=== PATIENT | male | born 1940 | race Caucasian/White ===

== ENCOUNTER 2016-11-15 11:58 | Day surgery (SDC) | payer MEDICARE, BC ==
[~2016-11-15 11:58] MED LIST: Buffered Lidocaine 1% SYR 3ML* 3 ML/SYR SYRINGE INTRADERM ONE
[2016-11-15] MEDS ORDERED: Buffered Lidocaine 1% SYR 3ML* 3 ML/SYR SYRINGE ONE (12:21)
[2016-11-15] MEDS ORDERED: Midazolam* 1 MG/ML 2 ML VIAL (2 MG) ONE (13:26)
[2016-11-15] MEDS ORDERED: Famotidine IV* 10 MG/ML 2 ML (20 mg) ONE (13:26)
[2016-11-15] MEDS ORDERED: Propofol* 10 MG/ML 20 ML BTL IV PUSH ONE (13:29)
[2016-11-15] MEDS ORDERED: Dexamethasone IV* 4 MG/ML 1 ML (4 MG) ONE (13:29)
[2016-11-15] MEDS ORDERED: Succinylcholine* 20 MG/ML 10 ML VIAL ONE (13:29)
[2016-11-15] MEDS ORDERED: Lidocaine 2% PF * 5 ML VIAL ONE (13:29)
[2016-11-15] MEDS ORDERED: fentaNYL* 50 MCG/ML 2 ML VIAL (100 MCG VIAL) ONE (13:56)
[2016-11-15] MEDS ORDERED: Acetaminophen TAB* 325 MG PO PRN (14:06)
[2016-11-15] MEDS ORDERED: Ondansetron INJ* 2 MG/ML VIAL IV PRN (14:06)
[2016-11-15] MEDS ORDERED: PROCHLORPERAZINE INJ 5 MG/ML 2 ML VIAL IV PRN (14:06)
[2016-11-15] MEDS ORDERED: Albuterol 2.5 MG/3 ML NEB.SOL* (0.083%) INH ONE (15:05)
[2016-11-15] MEDS ORDERED: Albuterol 2.5 MG/3 ML NEB.SOL* (0.083%) ONE (15:05)
[2016-11-15 15:23] VITALS: BP 112/65
--- NOTE | 2016-11-16 04:14 | PRO ---
BRONCHOSCOPY REPORT: DATE OF PROCEDURE: 11/15/16 - [facility] PROCEDURE PERFORMED BY: Naa Medel MD PROCEDURE PERFORMED: Bronchoscopy with endobronchial ultrasound-guided fine- needle aspiration of lung mass and mediastinal adenopathy. INDICATION FOR THE PROCEDURE: Lung mass, rule out malignancy. ANESTHESIOLOGIST: Dr. Muhammad. Refer to anesthesiologist note for further details. DESCRIPTION OF PROCEDURE: Informed consent was obtained from the patient prior to the procedure after all the risks and benefits of the procedure were thoroughly explained. A flexible Pentax bronchoscope was utilized for the airway inspection. Endotracheal tube was found to be 1 cm above the stephani and was pulled back about a centimeter. The bronchoscope was then advanced into the left bronchial tree, which was inspected. No endobronchial lesions were noted. All airways appeared to be patent. Bronchoscope was then advanced into the right mainstem bronchus. There was extrinsic compression and narrowing of right main stem bronchus and right upper lobe takeoff. No endobronchial lesions were noted. All the other airways on the right side appeared to be patent otherwise. Minimal secretions were noted and were suctioned out. The bronchoscope was then withdrawn and EBUS bronchoscope was inserted through ET tube. The L4 lymph nodes were scanned. Two L4 lymph node was minimally enlarged measuring about 5 to 6 mm. Two passes were performed from L4. Adequate lymphatic tissue was seen. Rapid on-site evaluation did not reveal malignant cells. R4 lymph node was accessed with 5 passes. The lymphatic tissue was seen on all the passes. Rapid on-site evaluation showed malignant cells. Rest of the specimen was placed in CytoLyt. Station seven lymph node was accessed through three passes. Malignant cells were also seen from station seven lymph node on rapid on-site evaluation. Specimen was placed in formalin and was sent to pathology for cell block. Bronchoscope was then withdrawn. A Pentax bronchoscope was once again inserted and airway was inspected for bleeding. Minimal bleeding was noted. The patient tolerated the procedure well. The patient was extubated and was seen in the Recovery in optimal condition. [id number]/CPS #: [id number] MTDD
== END 2016-11-15 15:36 | disposition home or self-care (01) ==
LOC: OR 11:58
PROVIDERS: ATTEND Internal Medicine
DX: C77.1 Secondary and unspecified malignant neoplasm of intrathoracic lymph nodes (principal); I48.91 Unspecified atrial fibrillation; Z79.01 Long term (current) use of anticoagulants; Z87.891 Personal history of nicotine dependence; J44.9 Chronic obstructive pulmonary disease, unspecified; I10 Essential (primary) hypertension
CPT/HCPCS: 88172; 88173; 88305; 88341; 88342; J0330; J1100; J2250; J2704; J3010

== ENCOUNTER 2017-01-08 14:58 | Inpatient (IN) | payer MEDICARE, BC ==
[2017-01-08] MEDS ORDERED: NS 0.9% 1000 ML* 1,000 ML IV ONE (15:21)
--- NOTE | 2017-01-08 15:42 | RAD ---
HISTORY: Weakness COMPARISONS: CT of the chest dated December 12, 2016 VIEWS:1: Single frontal portable view of the chest at 3:23 PM FINDINGS: LINES AND TUBES: None. CARDIOMEDIASTINAL SILHOUETTE: The cardiomediastinal silhouette is normal for portable technique. PLEURA: The costophrenic angles are sharp. No pleural abnormalities are noted. LUNG PARENCHYMA: Again noted is a right suprahilar mass. Accounting for differences in technique, this is stable from the previous CT examination ABDOMEN: The upper abdomen is clear. There is no subphrenic gas. BONES AND SOFT TISSUES: No bone or soft tissue abnormalities are noted. IMPRESSION: PERSISTENT SUPRAHILAR MASS OF THE RIGHT LATERAL
[2017-01-08 15:46] LABS: Hematocrit 33 % (42-52); Hemoglobin 10.7 g/dl (14.0-18.0); Mean Corpuscular HGB Conc 32 g/dl (31-36); Mean Corpuscular Hemoglobin 28 pg (27-31); Mean Corpuscular Volume 85 fL (80-94); Mean Platelet Volume 8 um3 (7.4-10.4); Red Blood Count 3.88 10^6/ul (4.0-5.4); Red Cell Distribution Width 16 % (10.5-15)
[2017-01-08 15:47] LABS: Comments Flag Yes
[2017-01-08 15:50] LABS: White Blood Count 1.5 10^3/ul (3.5-10.8)
[2017-01-08 16:01] LABS: Albumin 3.6 g/dL (3.2-5.2); BUN/Creatinine Ratio 33.3 (8-20); Calcium 9.6 mg/dL (8.6-10.3); EGFR African American 69.6 (>60); EGFR Non-African American 54.2 (>60); Globulin 2.9 g/dL (2-4); Potassium 3.3 mmol/L (3.5-5.0); Total Bilirubin 0.8 mg/dL (0.2-1.0); Total Protein 6.5 g/dL (6.4-8.9)
[2017-01-08] MEDS ORDERED: NS 0.9% IV ONE (16:01)
[2017-01-08] MEDS ORDERED: cefTRIAXone(*) 1 GM in NS 0.9% 50 ML* 50 ML IVPB ONE (16:02)
[2017-01-08 16:03] LABS: Troponin I 0.03 ng/mL (<0.04)
[2017-01-08] MEDS: Azithromycin IV(*) 500 MG in NS 0.9% 250 ML* 250 ML IVPB ONE ×2 (16:41→17:45)
[2017-01-08] MEDS ORDERED: oxyCODONE/Acetamin 5/325 MG* TAB PO PRN (18:49)
[2017-01-08] MEDS ORDERED: Magnesium Hydroxide LIQ* 30 ML UDC PO PRN (18:49)
[2017-01-08] MEDS ORDERED: Acetaminophen TAB* 325 MG PO PRN (18:49)
[2017-01-08] MEDS ORDERED: Ondansetron INJ* 2 MG/ML VIAL IV PRN (18:49)
[2017-01-08] MEDS ORDERED: Temazepam CAP* 15 MG PO PRN (18:49)
[2017-01-08] MEDS ORDERED: Phytonadione Oral Solution* 5 MG/25 ML UDC PO ONE (19:02)
--- NOTE | 2017-01-08 19:56 | ED ---
Fito Zaidi Adam, scribed for America Clancy MD on 01/08/17 at 1530 . Complex/Multi-Sys Presentation - HPI Summary HPI Summary: A 76 y/o male presents to the ED with progressively worsening nausea and vomiting since 2 days ago. He underwent radiation 3 days ago which caused him to feel very weak and he began having nausea and vomiting the next day. Pt also c/o SOB with exertion but he denies any CP. He sees Dr. Sterling for oncology and he is being treated with radiation as well as chemotherapy. - History Of Current Complaint Chief Complaint: EDGeneral Time Seen by Provider: 01/08/17 15:21 Hx Obtained From: Patient Onset/Duration: Gradual Onset, Lasting Days, Still Present Timing: Constant Severity Currently: Moderate Severity Initially: Moderate Aggravating Factor(s): Radiation therapy Alleviating Factor(s): Nothing Associated Signs And Symptoms: Positive: Weakness, SOB, Nausea, Vomiting. Negative: Chest Pain - Allergies/Home Medications Allergies/Adverse Reactions: Allergies Allergy/AdvReac Type Severity Reaction Status Date / Time Barium Allergy Severe Vomiting Verified 11/24/16 15:44 Codeine Allergy Severe VIOLENT Verified 11/24/16 15:44 VOMITING Penicillins Allergy Mild Rash Verified 11/24/16 15:44 Home Medications: Home Medications Fluticasone/Vilanterol MDI(NF) [Breo Ellipta MDI (NF)] 1 puff INH DAILY [History Confirmed 01/08/17] Ondansetron TAB* [Zofran 4 MG Tab*] 4 mg PO Q4HR PRN 01/08/17 [History Confirmed 01/08/17] Prochlorperazine TAB* [Compazine Tab*] 10 mg PO QID PRN 01/08/17 [History Confirmed 01/08/17] Tiotropium Mason Monohydrate [Spiriva Respimat] 2.5 mcg INH DAILY 01/08/17 [ History Confirmed 01/08/17] PMH/Surg Hx/FS Hx/Imm Hx Endocrine/Hematology History: Denies: Hx Diabetes Cardiovascular History: Reports: Hx Hypertension, Other Cardiovascular Problems/ Disorders - A-FIB CONTROL WITH WARFARIN Denies: Hx Pacemaker/ICD Respiratory History: Reports: Other Respiratory Problems/Disorders GI History: Reports: Other GI Disorders - HX OF DIVERTICULITS - NO PROBLEMS NOW History: Reports: Hx Kidney Stones - CURRENTLY, Other Problems/Disorders - ENLARGE PROSTATE Denies: Hx Renal Disease Musculoskeletal History: Reports: Hx Arthritis - BACK, RIGHT HIP, Other Musculoskeletal History - HX OF FRACTURE RIGHT HIP AND BACK YEARS AGO Denies: Hx Osteoporosis Sensory History: Reports: Hx Contacts or Glasses - GLASSES Denies: Hx Hearing Aid Opthamlomology History: Reports: Hx Contacts or Glasses - GLASSES Psychiatric History: Denies: Hx Panic Disorder - Cancer History Cancer Type, Location and Year: LUNG CANCER Hx Chemotherapy: Yes Hx Radiation Therapy: Yes - Surgical History Surgery Procedure, Year, and Place: APPENDECTOMY; CHOLECYSTECTOMY Hx Anesthesia Reactions: No Infectious Disease History: Denies: Traveled Outside the [place] in Last 30 Days - Family History Known Family History: Positive: Other - Negative: malignant hyperthermia, anesthesia reaction - Social History Occupation: Retired Lives: Alone Alcohol Use: None Alcohol Amount: RECOVERING ALCOHOLIC, NONE IN 36 YEARS Hx Substance Use: No Substance Use Type: Reports: None Hx Tobacco Use: Yes Smoking Status (MU): Former Smoker - Stopped 6 weeks ago (11/2016) Type: Cigarettes Amount Used/How Often: 1/2 PPD FOR ABOUT 40 YEARS Length of Time of Smoking/Using Tobacco: 40 YEARS Have You Smoked in the Last Year: Yes Review of Systems Negative: Chest Pain Positive: Shortness Of Breath Positive: Vomiting, Nausea Positive: Weakness All Other Systems Reviewed And Are Negative: Yes Physical Exam Triage Information Reviewed: Yes Vital Signs On Initial Exam: Initial Vitals Temp Pulse Resp BP Pulse Ox 97.7 F 117 20 110/59 100 01/08/17 15:09 01/08/17 15:09 01/08/17 15:09 01/08/17 15:09 01/08/17 15:09 Vital Signs Reviewed: Yes Appearance: Positive: No Pain Distress, Ill-Appearing Skin: Positive: Warm, Skin Color Reflects Adequate Perfusion, Dry Eyes: Positive: EOMI, GARRETT ENT: Positive: Pharynx normal, TMs normal, Other - Dry mucous membranes Neck: Positive: Supple, Nontender Respiratory/Lung Sounds: Positive: Clear to Auscultation, Breath Sounds Present. Negative: Rales, Rhonchi, Wheezes Cardiovascular: Positive: RRR. Negative: Murmur, Rub Abdomen Description: Positive: Nontender, Soft. Negative: Distended, Guarding Bowel Sounds: Positive: Present Musculoskeletal: Positive: Strength/ROM Intact. Negative: Edema Left, Edema Right Neurological: Positive: Sensory/Motor Intact, Alert, Oriented to Person Place, Time, CN Intact II-III Psychiatric: Positive: Affect/Mood Appropriate Diagnostics - Vital Signs Vital Signs Temp Pulse Resp BP Pulse Ox 01/08/17 15:09 97.7 F 117 20 110/59 100 - Laboratory Lab Results: Lab Results 01/08/17 01/08/17 01/08/17 Range/Units 15:35 15:35 15:35 WBC 1.5 L (3.5-10.8) 10^3/ul RBC 3.88 L (4.0-5.4) 10^6/ul Hgb 10.7 L (14.0-18.0) g/dl Hct 33 L (42-52) % MCV 85 (80-94) fL MCH 28 (27-31) pg MCHC 32 (31-36) g/dl RDW 16 H (10.5-15) % Plt Count 128 L (150-450) 10^3/ul MPV 8 (7.4-10.4) um3 Neut % (Auto) 82.5 (38-83) % Lymph % (Auto) 7.9 L (25-47) % [place] % (Auto) 8.1 (1-9) % Eos % (Auto) 0.3 (0-6) % Baso % (Auto) 1.2 (0-2) % Absolute Neuts (auto) 1.2 L (1.5-7.7) 10^3/ul Absolute Lymphs (auto) 0.1 L (1.0-4.8) 10^3/ul Absolute Monos (auto) 0.1 (0-0.8) 10^3/ul Absolute Eos (auto) 0 (0-0.6) 10^3/ul Absolute Basos (auto) 0 (0-0.2) 10^3/ul Absolute Nucleated RBC 0.01 10^3/ul Nucleated RBC % 0.4 INR (Anticoag Therapy) 8.79 H* (0.89-1.11) APTT 67.4 H (26.0-36.3) seconds Sodium 134 (133-145) mmol/L Potassium 3.3 L (3.5-5.0) mmol/L Chloride 99 L (101-111) mmol/L Carbon Dioxide 27 (22-32) mmol/L Anion Gap 8 (2-11) mmol/L BUN 43 H (6-24) mg/dL Creatinine 1.29 H (0.67-1.17) mg/dL Est GFR ( Amer) 69.6 (>60) Est GFR (Non-Af Amer) 54.2 (>60) BUN/Creatinine Ratio 33.3 H (8-20) Glucose 113 H (70-100) mg/dL Lactic Acid (0.5-2.0) mmol/L Calcium 9.6 (8.6-10.3) mg/dL Total Bilirubin 0.80 (0.2-1.0) mg/dL AST 17 (13-39) U/L ALT 16 (7-52) U/L Alkaline Phosphatase 86 (34-104) U/L Troponin I 0.03 (<0.04) ng/mL Total Protein 6.5 (6.4-8.9) g/dL Albumin 3.6 (3.2-5.2) g/dL Globulin 2.9 (2-4) g/dL Albumin/Globulin Ratio 1.2 (1-3) Influenza A (Rapid) (Negative) Influenza B (Rapid) (Negative) 01/08/17 01/08/17 Range/Units 15:35 16:34 WBC (3.5-10.8) 10^3/ul RBC (4.0-5.4) 10^6/ul Hgb (14.0-18.0) g/dl Hct (42-52) % MCV (80-94) fL MCH (27-31) pg MCHC (31-36) g/dl RDW (10.5-15) % Plt Count (150-450) 10^3/ul MPV (7.4-10.4) um3 Neut % (Auto) (38-83) % Lymph % (Auto) (25-47) % [place] % (Auto) (1-9) % Eos % (Auto) (0-6) % Baso % (Auto) (0-2) % Absolute Neuts (auto) (1.5-7.7) 10^3/ul Absolute Lymphs (auto) (1.0-4.8) 10^3/ul Absolute Monos (auto) (0-0.8) 10^3/ul Absolute Eos (auto) (0-0.6) 10^3/ul Absolute Basos (auto) (0-0.2) 10^3/ul Absolute Nucleated RBC 10^3/ul Nucleated RBC % INR (Anticoag Therapy) (0.89-1.11) APTT (26.0-36.3) seconds Sodium (133-145) mmol/L Potassium (3.5-5.0) mmol/L Chloride (101-111) mmol/L Carbon Dioxide (22-32) mmol/L Anion Gap (2-11) mmol/L BUN (6-24) mg/dL Creatinine (0.67-1.17) mg/dL Est GFR ( Amer) (>60) Est GFR (Non-Af Amer) (>60) BUN/Creatinine Ratio (8-20) Glucose (70-100) mg/dL Lactic Acid 2.1 H* (0.5-2.0) mmol/L Calcium (8.6-10.3) mg/dL Total Bilirubin (0.2-1.0) mg/dL AST (13-39) U/L ALT (7-52) U/L Alkaline Phosphatase (34-104) U/L Troponin I (<0.04) ng/mL Total Protein (6.4-8.9) g/dL Albumin (3.2-5.2) g/dL Globulin (2-4) g/dL Albumin/Globulin Ratio (1-3) Influenza A (Rapid) Negative (Negative) Influenza B (Rapid) Negative (Negative) Result Diagrams: 01/08/17 15:35 01/08/17 15:35 Lab Statement: Any lab studies that have been ordered have been reviewed, and results considered in the medical decision making process. - Radiology CXR Radiology Interpretation Completed By: Radiologist - IMPRESSION: PERSISTENT SUPRAHILAR MASS OF THE RIGHT LATERAL - Additional Comments Diagnostic Additional Comments: Lactic Acid - 2.1 INR - 8.79 Troponin I - 0.03 Influenza A (Rapid) - Negative Influenza B (Rapid) - Negative Complex Multi-Symp Course/Dx Course Of Treatment: 76 yo male with lung ca getting radiation and chemo here after vomiting at home. Pt appearing dehydrated with elevated lactate, hr , 30cc /kg of normal saline given and abx given to cover. [facility] accepted pt for admission - Diagnoses Provider Diagnoses: Dehydration Discharge - Discharge Plan Condition: Stable Disposition: ADMITTED TO [facility] The documentation as recorded by the Fito del rosario Adam accurately reflects the service I personally performed and the decisions made by me, America Clancy MD.
[2017-01-08] MEDS: Metoprolol Tartrate TAB* 50 mg PO SCH (20:59)
[2017-01-08] MEDS: NS 0.9% 1000 ML* 1,000 ML IV SCH (21:00)
--- NOTE | 2017-01-09 02:23 | HP ---
HISTORY AND PHYSICAL: DATE OF ADMISSION: 01/08/17 IDENTIFICATION: A 76-year-old male receiving chemotherapy and radiation for localized lung cancer. HISTORY OF PRESENT ILLNESS: He had radiation on Sunday. Had been doing relatively well on that day. Over the weekend, he just felt very tired, was not eating very much. He got weaker and weaker. This morning, lying on couch he did not even get up. He could not manage at home. He felt dizzy sitting up. He called an ambulance. [facility] arrived. When [facility] arrived, he was not in distress. BP of 100/82, respiratory rate , and heart rate of 130. Brought to the emergency room. He was given IV fluids through the day and he felt much better. He had some cough at home, but he has not been coughing in the emergency room. No fevers or chills. He does feel less dizzy now, but continues to have a heart rate around 115. He feels the hydration has really helped. No diarrhea, no nausea or vomiting, no urinary symptoms, and no increased shortness of breath. PAST MEDICAL HISTORY: 1. History of alcohol abuse. 2. Anxiety. 3. Aortic aneurysm. 4. Atrial fibrillation. 5. BPH. 6. COPD. 7. Diverticulitis. 8. Hypertension. 9. Lung cancer. Diagnosed in October 2016. Started chemotherapy and radiation on 12/05/16. Has one more treatment remaining. He has stage II disease by path and biopsy. PAST SURGICAL HISTORY: EBUS in 2017 with diagnosis of cancer. MEDICATIONS: 1. Alendronate 70 weekly. 2. Coumadin 8 mg daily. 3. Finasteride 5 mg daily. 4. Hydrochlorothiazide 25 mg daily. 5. Metoprolol 50 mg b.i.d. ALLERGIES: CODEINE SULFATE AND PENICILLIN. FAMILY HISTORY: Brother of cancer, not sure what kind. Sister had breast cancer. Both his grandparents had colon cancer. SOCIAL HISTORY: Single and retired. Former smoker, approximately 30 pack years. 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 Two sons and two grandchildren live in [place], [place], and [place]. Sister is in [place]. REVIEW OF SYSTEMS: General: Weak, fatigued. No fevers or chills. Neurologic : Negative. HEENT: Negative. Endocrine: Negative. Hematologic/lymphatic: On chemotherapy. Respiratory: Chronic shortness of breath, stable. Cardiovascular: Tachycardic, dizzy when he gets up. Gastrointestinal: Little bit of anorexia but no nausea, vomiting, or diarrhea. : Negative. Musculoskeletal: Arthritis and back pain. Skin: Some scaly skin on his legs. PHYSICAL EXAMINATION VITAL SIGNS: BP 123/60, pulse 109, saturation 99%, respirations 12, temperature 97.7. HEENT: Slightly cachectic. Mucosa moist. No lesions. NECK: No lymphadenopathy. No JVD. LUNGS: Decreased breath sounds. Clear to auscultation. HEART: Regular rhythm. S1, S2. Tachycardic. ABDOMEN: Nontender, nondistended. Good bowel sounds. EXTREMITIES: He has got good pulses. No edema. +2 clubbing. NEUROLOGIC: Alert and oriented x3. Normal gait. Strength 5/5 throughout. LABORATORY DATA: Lactic acid about 2. Hemoglobin 10.7, white count 1.5 with ANC of 1200. Potassium 3.3. Creatinine 1.29, near his baseline. Normal LFTs. ASSESSMENT AND PLAN: A 76-year-old male, currently under combined modality therapy for localized lung cancer, comes in after being hydrated all weekend. He has improved in the emergency room over the day, but still does not feel up to going home. 1. Admit overnight with continued IV fluids. 2. Potassium 40 mEq p.o. x1. 3. Continue with radiation tomorrow, hold chemotherapy for time being. May not treat again during his radiation. 4. I am going to hold his hydrochlorothiazide for the duration of his radiation , continue metoprolol. 5. He will be able to go home after radiation tomorrow. 6. Full code at this time. 7. Elevated INR. We will give vitamin K 5 mg x1 now and hold his Coumadin until he normalizes, then restart it at a lower dose. [id number]/CPS #: [id number] [facility]
[2017-01-09] MEDS: NS 0.9% 1000 ML* 1,000 ML IV SCH ×2 (05:02→19:00)
[2017-01-09 07:20] LABS: Hematocrit 26 % (42-52); Hemoglobin 8.6 g/dl (14.0-18.0); Mean Corpuscular HGB Conc 34 g/dl (31-36); Mean Corpuscular Hemoglobin 29 pg (27-31); Mean Corpuscular Volume 85 fL (80-94); Mean Platelet Volume 8 um3 (7.4-10.4); Red Blood Count 3.02 10^6/ul (4.0-5.4); Red Cell Distribution Width 16 % (10.5-15)
[2017-01-09 07:35] LABS: BUN/Creatinine Ratio 37.9 (8-20); Calcium 8.3 mg/dL (8.6-10.3); EGFR African American 109.7 (>60); EGFR Non-African American 85.3 (>60); Potassium 3.1 mmol/L (3.5-5.0)
[2017-01-09 07:37] LABS: Add Diff/Slide Review? Slide Review Added; Comments Flag Yes
[2017-01-09] MEDS ORDERED: Loperamide CAP* 2 MG PO PRN (08:53)
[2017-01-09] MEDS: KCL 20 MEQ/100 ML IVPREMIX* 20 MEQ/100 ML BAG IV SCH ×2 (09:20→15:48)
[2017-01-09] MEDS: Metoprolol Tartrate TAB* 50 mg PO SCH ×3 (09:37→21:41)
[2017-01-09] MEDS: NS 0.9% 1000 ML* 1,000 ML IV ONE ×2 (10:16→10:40)
[2017-01-09] MEDS: Cefepime(*) 2 GM in NS 0.9% 50 ML* 50 ML IVPB SCH ×2 (10:35→17:36)
[2017-01-10] MEDS: Cefepime(*) 2 GM in NS 0.9% 50 ML* 50 ML IVPB SCH ×3 (01:43→17:55)
[2017-01-10 06:02] LABS: BUN/Creatinine Ratio 26.5 (8-20); Calcium 8.1 mg/dL (8.6-10.3); EGFR African American 115.8 (>60); EGFR Non-African American 90.1 (>60); Potassium 3.1 mmol/L (3.5-5.0)
[2017-01-10] MEDS: Metoprolol Tartrate TAB* 50 mg PO SCH ×2 (10:21→21:08)
[2017-01-10] MEDS: NS 0.9% 1000 ML* 1,000 ML IV SCH (13:38)
[2017-01-11] MEDS: NS 0.9% 1000 ML* 1,000 ML IV SCH (00:25)
[2017-01-11] MEDS: Cefepime(*) 2 GM in NS 0.9% 50 ML* 50 ML IVPB SCH (03:27)
[2017-01-11 07:45] LABS: Hematocrit 25 % (42-52); Mean Corpuscular HGB Conc 32 g/dl (31-36); Mean Corpuscular Hemoglobin 28 pg (27-31); Mean Corpuscular Volume 87 fL (80-94); Mean Platelet Volume 8 um3 (7.4-10.4); Red Blood Count 2.83 10^6/ul (4.0-5.4); Red Cell Distribution Width 16 % (10.5-15)
[2017-01-11 07:54] LABS: Comments Flag Yes; White Blood Count 1.5 10^3/ul (3.5-10.8)
[2017-01-11 08:01] LABS: Albumin 2.7 g/dL (3.2-5.2); Calcium 7.8 mg/dL (8.6-10.3); EGFR African American 130.2 (>60); EGFR Non-African American 101.3 (>60); Globulin 2.3 g/dL (2-4); Potassium 2.8 mmol/L (3.5-5.0); Total Bilirubin 0.7 mg/dL (0.2-1.0)
[2017-01-11] MEDS ORDERED: Magnesium Sulfate 2 GM IV* 2 GM/50 ML BAG IVPB ONE (09:16)
[2017-01-11] MEDS ORDERED: Magnesium Oxide TAB* 400 MG PO ONE (09:35)
[2017-01-11] MEDS ORDERED: Potassium Chloride LIQUID* 20 MEQ PACKET ONE (09:36)
[2017-01-11] MEDS ORDERED: Magnesium Oxide TAB* 400 MG ONE (09:40)
[2017-01-11] MEDS: Metoprolol Tartrate TAB* 50 mg PO SCH (09:41)
[2017-01-11] MEDS ORDERED: Magnesium Sulf 4 GM/100 ML IV* 4,000 MG/100 ML BAG IVPB ONE (10:00)
[2017-01-11] MEDS ORDERED: Magnesium Hydroxide LIQ* 30 ML UDC PO SCH (10:00)
[2017-01-11] MEDS: Magnesium CITRATE* 300 ML BTL PO SCH ×2 (10:34→16:49)
[2017-01-11] MEDS: KCL 20 MEQ/100 ML IVPREMIX* 20 MEQ/100 ML BAG IV SCH ×2 (10:56→13:05)
[2017-01-11 16:24] LABS: BUN/Creatinine Ratio 15.6 (8-20); Calcium 8.2 mg/dL (8.6-10.3); EGFR African American 126.3 (>60); EGFR Non-African American 98.2 (>60); Magnesium 1.8 mg/dL (1.9-2.7); Potassium 3.9 mmol/L (3.5-5.0)
[2017-01-11] MEDS ORDERED: Warfarin TAB(*) 4 MG PO SCH (17:00)
[2017-01-11 17:44] VITALS: BP 131/53
[2017-01-12] MEDS ORDERED: Potassium Chloride LIQUID* 20 MEQ PACKET PO SCH (09:00)
--- NOTE | 2017-01-13 01:29 | DS ---
DISCHARGE SUMMARY: DATE OF ADMISSION: 01/09/17 DATE OF DISCHARGE: 01/11/17 PRINCIPAL DIAGNOSIS: Neutropenic fever secondary to chemotherapy and combined radiation therapy. OTHER SIGNIFICANT DIAGNOSES: Include: 1. History of atrial fibrillation with hypertherapeutic INR secondary to Coumadin therapy. 2. History of alcohol abuse. 3. History of anxiety. 4. History of aortic aneurysm. 5. History of benign prostatic hyperplasia. 6. History of chronic obstructive pulmonary disease. 7. History of diverticulitis. 8. History of hypertension. 9. History of lung cancer, on active combined chemotherapy. HOSPITAL COURSE: Briefly, the patient came through the emergency room via the ambulance and into [facility] emergency room as he was feeling weak and very tired. He was not eating much. He got weaker and weaker throughout the weekend and by the morning, he could not get off the couch. He called the amb ulance and they brought him to the emergency room, felt dizzy, and he had been running a fever of 10 2 over the previous night. He was also hypotensive and his respiratory rate was elevated, heart rat e was 130, and he did qualify for sepsis criteria. He was pancultured and brought into the hospital . They did also do a chest x-ray as part of his fever workup and he did have a cough at home. Also , the blood work indicated that his INR was 8 and his Coumadin was stopped appropriately. He was pl aced on aggressive fluid resuscitation and was afebrile by the time he got to the emergency room. Kartik lopez was admitted overnight for both IV fluids, potassium repletement as his potassium was low, and als o magnesium was low during his hospital stay which were both repleted. His chemotherapy will be on hold throughout the remainder of his radiation therapy and his radiation therapy was continued durin g his hospital stay. His INR did resolve both after 5 mg of vitamin K and 3 days off Coumadin to 1.3 7 and then restarted at half of the dose. He was placed on cefepime for neutropenic coverage. His cultures did not grew out anything significant or revealing and his cefepime was stopped approximate ly 12 hours prior to his discharge and it was felt that he did not need oral stepdown therapy at kelvin t time. Physical Therapy did work with him during his hospital stay and he was sent home on a wheel ed walker for his safety as he does live alone. He will follow up in the office after returning to a regular diet next week and follow up with Dr. Mathews, I believe this is his attending, as a followup to his therapy. Again, he will continue his radiation therapy with Dr. Sterling as scheduled. HU SHULTZ [id number]/[facility] #: [id number]
== END 2017-01-11 17:45 | disposition home or self-care (01) | DRG 809 ==
LOC: ED 14:58 → MED 18:49 → OBSVTOIN 01-09 08:51
PROVIDERS: ADMIT Internal Medicine Hematology & Oncology; ATTEND Internal Medicine Hematology & Oncology
PROC: DW022ZZ Beam Radiation of Chest using Photons >10 MeV (ICD-10-PCS; principal; 2017-01-09)
DX: D70.1 Agranulocytosis secondary to cancer chemotherapy (principal); C34.90 Malignant neoplasm of unspecified part of unspecified bronchus or lung; I95.9 Hypotension, unspecified; E86.0 Dehydration; I48.91 Unspecified atrial fibrillation; J44.9 Chronic obstructive pulmonary disease, unspecified; I10 Essential (primary) hypertension; Z88.5 Allergy status to narcotic agent; Z88.0 Allergy status to penicillin; Z88.8 Allergy status to other drugs, medicaments and biological substances; Z87.442 Personal history of urinary calculi; M16.11 Unilateral primary osteoarthritis, right hip; Z85.118 Personal history of other malignant neoplasm of bronchus and lung; F41.9 Anxiety disorder, unspecified; N40.0 Benign prostatic hyperplasia without lower urinary tract symptoms; Z80.3 Family history of malignant neoplasm of breast; Z80.0 Family history of malignant neoplasm of digestive organs; R00.0 Tachycardia, unspecified; T45.1X5A Adverse effect of antineoplastic and immunosuppressive drugs, initial encounter; R50.81 Fever presenting with conditions classified elsewhere; Y92.9 Unspecified place or not applicable; T50.8X5A Adverse effect of diagnostic agents, initial encounter
CPT/HCPCS: 36415; 71010; 80048; 80053; 83605; 83735; 84484; 85025; 85060; 85610; 85730; 87040; 87502; 93005; 99223; 99232; 99238; A9270-GY; J0456; J0692; J0696; J3480

== ENCOUNTER 2017-06-25 11:43 | Emergency (ER) | payer BC, MEDICARE ==
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
[2017-06-25 12:17] LABS: Hematocrit 39 % (42-52); Mean Corpuscular HGB Conc 34 g/dl (31-36); Mean Corpuscular Hemoglobin 30 pg (27-31); Mean Corpuscular Volume 90 fL (80-94); Mean Platelet Volume 7 um3 (7.4-10.4); Red Blood Count 4.29 10^6/ul (4.0-5.4); Red Cell Distribution Width 15 % (10.5-15); White Blood Count 9.7 10^3/ul (3.5-10.8)
[2017-06-25 12:35] LABS: Troponin I 0.01 ng/mL (<0.04)
[2017-06-25 12:39] LABS: Albumin 3.8 g/dL (3.2-5.2); BUN/Creatinine Ratio 22.9 (8-20); Calcium 9.5 mg/dL (8.6-10.3); EGFR African American 84.6 (>60); EGFR Non-African American 65.8 (>60); Globulin 2.8 g/dL (2-4); Potassium 4.2 mmol/L (3.5-5.0); Total Bilirubin 0.8 mg/dL (0.2-1.0); Total Protein 6.6 g/dL (6.4-8.9)
[2017-06-25] MEDS ORDERED: NS 0.9% 1000 ML* 1,000 ML IV ONE (12:45)
[2017-06-25] MEDS ORDERED: Acetaminophen TAB* 325 MG PO ONE (12:53)
[2017-06-25] MEDS ORDERED: Iohexol 300* (CONTRAST) 10 ML SDV IV ONE (13:04)
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
[2017-06-25 16:44] VITALS: BP 132/85
== END 2017-06-25 16:44 | disposition home or self-care (01) ==
LOC: ED 11:43
DX: S22.20XA Unspecified fracture of sternum, initial encounter for closed fracture (principal); I10 Essential (primary) hypertension; I48.91 Unspecified atrial fibrillation; F17.210 Nicotine dependence, cigarettes, uncomplicated; Z88.5 Allergy status to narcotic agent; Z88.0 Allergy status to penicillin; C34.90 Malignant neoplasm of unspecified part of unspecified bronchus or lung; Z79.01 Long term (current) use of anticoagulants; V89.2XXA Person injured in unspecified motor-vehicle accident, traffic, initial encounter; Y92.488 Other paved roadways as the place of occurrence of the external cause
CPT/HCPCS: 36415; 70450; 71260; 74177; 80053; 84484; 85025; 85610; 85730; 86850; 86900; 86901; 93005; 96360; 96374; 99283; A9270-GY; Q9967